=== PATIENT | male | born 1970 | race Caucasian/White ===

== ENCOUNTER 2018-03-21 23:48 | Emergency (ER) | payer OTHER ==
[~2018-03-21] VITALS: Ht 175.3 cm; Wt 90.7 kg
[~2018-03-21 23:48] MED LIST: ACETAMINOPHEN-1 EAC1 PO; AFRIN15 ML NS; ANTIPYRINE-BENZ10 ML OT; CEPHALEXIN 500500 M3 PO; CLEOCIN HCL150 MG PO; IBUPROFEN 800800 M1 PO; PROMETHAZINE D480 ML PO
[2018-03-21 23:53] VITALS: BP 151/100
[2018-03-21] MEDS ORDERED: NOHOMEMEDICATIONS (23:58)
[2018-03-22] MEDS ORDERED: BACTRIM DS TAB1 EACH PO (00:13)
[2018-03-22] MEDS ORDERED: TORADOL 10 MG T10 MG PO (00:13)
== END 2018-03-22 00:20 | disposition home or self-care (01) ==
LOC: M.ERS 23:48
DX: H72.92 Unspecified perforation of tympanic membrane, left ear (principal); H92.02 Otalgia, left ear; F17.200 Nicotine dependence, unspecified, uncomplicated; Z88.0 Allergy status to penicillin